=== PATIENT | female | born 2000 | race Caucasian/White ===

== ENCOUNTER 2023-12-18 11:10 | Outpatient (OUT) | payer OTHER, SELFPAY ==
[2023-12-18 11:54] LABS: Basophils Percent Auto 0.7 % (0.2-2.0); Eosinophils Absolute Auto 0.2 10^3/uL (0.0-0.7); Hemoglobin 12.4 g/dL (12.0-16.0); Immature Granulocytes Abs Auto 0.01 10^3/uL (0.00-0.03); Immature Granulocytes Pct Auto 0.2 % (0.0-0.5); Lymphocytes Absolute Auto 1.7 10^3/uL (1.2-3.8); Lymphocytes Percent Auto 28.9 % (20.5-60.0); Mean Corpuscular HGB Conc 33.5 g/dL (29.9-35.2); Mean Corpuscular Volume 86.7 fL (81.0-99.0); Mean Platelet Volume 9.8 fL (9.5-13.5); Monocytes Absolute Auto 0.4 10^3/uL (0.3-0.8); Monocytes Percent Auto 7.1 % (1.7-12.0); Neutrophils Absolute Auto 3.6 10^3/uL (1.4-6.5); Neutrophils Percent Auto 60.1 % (43.0-75.0); Platelet Count 245 10^3/uL (150-450); Red Blood Count 4.27 10^6/uL (4.20-5.40); Red Cell Distribution Width 12.7 % (11.0-15.0); White Blood Count 5.9 10^3/uL (4.0-11.0)
== END 2023-12-18 11:11 | disposition home or self-care (01) ==
LOC: PST 11:19
PROVIDERS: PCP Family Medicine; Visit Provider Surgery
DX: Z01.812 Encounter for preprocedural laboratory examination (principal); K80.20 Calculus of gallbladder without cholecystitis without obstruction
CPT/HCPCS: 85025

== ENCOUNTER 2023-12-26 06:55 | Day surgery (SDC) | payer OTHER, SELFPAY ==
[2023-12-18 12:20] VITALS: BP 110/70; PULSE 78; TEMP 36.3; O2SAT 97; BMI 26.5
[2023-12-26] VITALS (10 sets, daily range): BP systolic 103–139; BP diastolic 53–86; PULSE 56–72; TEMP 35.2–36.9; O2SAT 91–97; BMI 26.4
[2023-12-26] MEDS: LACTATED RINGER'S SOLUTION 1,000 ML 50 ML IV (07:30)
[2023-12-26] MEDS: INDOCYANINE GREEN 25 MG VIAL 5 MG INJ (07:31)
[2023-12-26 07:32] LABS: HCG Qualitative NEGATIVE (NEGATIVE); Internal Control Within Normal Limits
[2023-12-26] MEDS: CLINDAMYCIN PHOSPHATE/D5W 600 MG/50 ML PIGGYBACK 100 MG IV (07:36)
--- NOTE | 2023-12-26 07:58 | P.ON_ITS ---
Date of procedure: 12/26/23 Pre-op diagnosis: symptomatic cholelithiasis Post-op diagnosis: same as pre-op Procedure: Procedure: Robotic assisted laparoscopic cholecystectomy with VARGHESE block The patient was brought to the operating room and placed supine on the operating room table. Cardiopulmonary monitoring was initiated. General anesthesia was induced without any complication. A time-out was performed. Pre-operative antibiotics were given. EPC cuffs were on the lower extremities. The abdomen was prepped and draped in the usual sterile fashion. The abdomen was entered approximately 12-14 cm distal to the xyophoid process and to the left of the midline. To do this a skin incision was made. A 5mm 0 degree laparoscope was then introduced using an optical access trocar. Pneumoperitoneum was then established through this trocar. Once pneumoperitoneum was created 2 additional 8 mm Da Deborah ports were placed under direct visualization in the mid left and left lateral abdomen along the same line just superior to the umbilicus. A 4th 8mm RUQ port was placed then as well under direct visualization. The 5mm optiview port was then upsized to a 12mm robotic port under direct visualization. Prior to proceeding with the operation, an intraoperative TAP block was performed. ?Under visualization with the laparoscope, a needle was inserted percutaneously and, confirming that I was in the right plane, 30 mL of a mixture of Ropivacaine and Decadron were injected on both sides for a total of 60 ml. ?Good separation of the muscle planes was seen bilaterally indicating good placement of the anesthetic solution. The da Deborah machine was then docked and a camera placed without complication. A monopolar hook was then placed in the right arm and a fenestrated bipolar g rasper was placed in the left arm.? Filmy adhesions between the gallbladder and the omentum were lysed carefully with electrocautery.? The fundus of the gallbladder was grasped and directed towards the patient's right shoulder.? The infundibulum of the gallbladder was grasped with a bipolar grasper.? The gallbladder was positioned so that the cystic duct was at a right angle to the common bile duct in order to expose Calot's triangle. The peritoneum between the gallbladder and the liver was taken down by electrocautery to further mobilize the triangle.? The fibrous tissue was hooked with meticulous electrocautery.? Hook electrocautery was used to identify the cystic duct. The cystic duct was skeletonized with electrocautery.? Dissection was continued to locate the cystic artery.? The cystic artery was skeletonized with electrocautery. Critical view was obtained in the anterior and posterior window.? All fat and fibrous tissue was dissected from the cystohepatic triangle with careful hook electrocautery. The cystic plate of the liver was skeletonized with hook electrocautery.? Both the cystic duct and cystic artery were the only structures visualized entering into the gallbladder. Firefly was used to confirm identification of the cystic duct.? The critical view of safety was confirmed. The cystic duct was ligated with double Hemoclips, and then divided with Endoshears. The cystic artery was ligated with a Hemoclip and divided with Endoshears. The gallbladder was dissected from the liver bed with electrocautery.? The gallbladder was then placed into the Endopouch and delivered from the body at the 12mm port incision.? The bed was then inspected.? Hemostasis was achieved with electrocautery. The cystic duct and artery stumps were identified. All clips remained on both the cystic artery and the cystic duct stump.? No sign of bile leak or bleeding from the duct or artery stump. The da Deborah was undocked from the patient.?The camera and the left 12mm umbilical port were removed from the abdomen. The 12mm port fascia was closed with an 0 Vicryl suture with a needle nose suture passer and a Riley-Jason needle under direct visualization.? Working ports were removed.? All incisions were closed with simple subcuticular 4-0 Monocryl sutures.? Incisions were cleaned and dressed with Dermabond. All sponge, needle and instrument counts were correct prior to closure and the patient tolerated the procedure well without any apparent complication. Anesthesia: YORDYA Surgeon: Stewart Still Estimated blood loss (mL): 3 Pathology: other (gallbladder and contents ) Condition: stable
[2023-12-26] MEDS: 0.9 % SODIUM CHLORIDE 10 ML VIAL 20 ML IV (08:18)
[2023-12-26] MEDS: BUPIVACAINE HCL 0.25% PF 25 MG/10 ML VIAL 20 ML INJ (08:18)
[2023-12-26] MEDS: BUPIVACAINE LIPOSOME/PF 266 MG/13.3 ML VIAL INJ (08:18)
[2023-12-26] MEDS: OXYCODONE HCL/ACETAMINOPHEN 5MG/325MG 1 TAB PO (10:20)
== END 2023-12-26 11:12 | disposition home or self-care (01) ==
PROVIDERS: PCP Family Medicine; Visit Provider Surgery
PROC: (CPT 790; principal; 2023-12-26 07:55)
DX: K80.10 Calculus of gallbladder with chronic cholecystitis without obstruction (principal); K21.9 Gastro-esophageal reflux disease without esophagitis; D64.9 Anemia, unspecified
CPT/HCPCS: 47562; 36415; 84703; J0131; J0665; J1100; J1885; J2250; J2405; J2704; J3010